=== PATIENT | female | born 1930 | race Caucasian/White ===

== ENCOUNTER 2018-04-07 15:26 | Inpatient (IN) | payer BC, MEDICARE ==
[2018-04-07] MEDS ORDERED: SODIUM CHLORIDE 0.9% 1,000 ML IV STA (15:32)
--- NOTE | 2018-04-07 15:59 | ED ---
General Adult HPI - General Chief complaint: Altered Mental Status Stated complaint: Altered Mental Status Time Seen by Provider: 04/07/18 15:32 Source: EMS, RN notes reviewed, old records reviewed Mode of arrival: EMS Limitations: altered mental status - History of Present Illness Initial comments: This is an 88-year-old female the ER for evaluation of weakness severe weakness. Patient's poor strain secondary to age. Patient family found patient lying on the ground in her apartment. Patient does live by herself. Unknown patient was last seen up, patient is awake alert and knows her she has, states she was just too weak to stand up and was found in the ground she is also unsure of when she went to the ground or how long she was on the ground for - Related Data Home Medications Medication Instructions Recorded Confirmed Albuterol Sulfate [Proair Hfa] 2 puff INHALATION RT-Q4H PRN 04/07/18 04/07/18 Atenolol 25 mg PO HS 04/07/18 04/07/18 Clopidogrel [Plavix] 75 mg PO DAILY 04/07/18 04/07/18 Fluticasone/Salmeterol [Advair 1 inhalation PO BID 04/07/18 04/07/18 250-50 Diskus] Simvastatin [Zocor] 20 mg PO HS 04/07/18 04/07/18 amLODIPine [Norvasc] 7.5 mg PO DAILY 04/07/18 04/07/18 Allergies Allergy/AdvReac Type Severity Reaction Status Date / Time ISAEL Inhibitors Allergy Unknown Verified 04/07/18 16:03 aspirin Allergy Unknown Verified 04/07/18 16:03 diclofenac [From Arthrotec] Allergy Unknown Verified 04/07/18 16:03 misoprostol [From Arthrotec] Allergy Unknown Verified 04/07/18 16:03 prednisone Allergy Unknown Verified 04/07/18 16:03 Review of Systems ROS Statement: Those systems with pertinent positive or pertinent negative responses have been documented in the HPI. ROS Other: All systems not noted in ROS Statement are negative. Past Medical History Past Medical History: Asthma, Heart Failure, CVA/TIA, Hyperlipidemia, Hypertension, Rheumatoid Arthritis (RA) Additional Past Medical History / Comment(s): neoplasm, weakness, thromocytopenia, hearing loss History of Any Multi-Drug Resistant Organisms: None Reported Past Surgical History: Unable to Obtain Past Psychological History: No Psychological Hx Reported Smoking Status: Former smoker Past Alcohol Use History: None Reported Past Drug Use History: None Reported General Exam Limitations: altered mental status General appearance: alert, in no apparent distress Head exam: Present: atraumatic, normocephalic, normal inspection Eye exam: Present: normal appearance, PERRL, EOMI. Absent: scleral icterus, conjunctival injection, periorbital swelling ENT exam: Present: normal exam, mucous membranes moist Neck exam: Present: normal inspection. Absent: tenderness, meningismus, lymphadenopathy Respiratory exam: Present: normal lung sounds bilaterally. Absent: respiratory distress, wheezes, rales, rhonchi, stridor Cardiovascular Exam: Present: regular rate, normal rhythm, normal heart sounds. Absent: systolic murmur, diastolic murmur, rubs, gallop, clicks GI/Abdominal exam: Present: soft, normal bowel sounds. Absent: distended, tenderness, guarding, rebound, rigid Extremities exam: Present: normal inspection, full ROM, normal capillary refill. Absent: tenderness, pedal edema, joint swelling, calf tenderness Back exam: Present: normal inspection Neurological exam: Present: alert, oriented X3, CN II-XII intact Psychiatric exam: Present: normal affect, normal mood Skin exam: Present: warm, dry, intact, normal color. Absent: rash Course Vital Signs 04/07/18 04/07/18 15:40 16:58 Temperature 97.6 F Pulse Rate 60 66 Respiratory 18 18 Rate Blood Pressure 180/81 162/74 O2 Sat by Pulse 98 96 Oximetry - Reevaluation(s) Reevaluation #1: 04/07/18 18:11 Patient with severe weakness and inability to ambulate found down Reevaluation #2: 04/07/18 18:11 Patient has no significant improvement with IV hydration EKG Findings - EKG Comments: EKG Findings:: EKG shows sinus bradycardia rate of 59, CO 134, QRS 124, QTC 495 Medical Decision Making - Medical Decision Making 88 female the ER with severe weakness, found down. Patient be admitted for continued IV hydration, PTOT - Lab Data Result diagrams: 04/07/18 15:45 04/07/18 15:45 Lab Results 04/07/18 04/07/18 04/07/18 Range/Units 15:45 15:45 15:45 WBC 7.1 (3.8-10.6) k/uL RBC 4.46 (3.80-5.40) m/uL Hgb 14.2 (11.4-16.0) gm/dL Hct 43.3 (34.0-46.0) % MCV 97.0 (80.0-100.0) fL MCH 31.8 (25.0-35.0) pg MCHC 32.8 (31.0-37.0) g/dL RDW 12.9 (11.5-15.5) % Plt Count 187 (150-450) k/uL Neutrophils % 81 % Lymphocytes % 12 % Monocytes % 6 % Eosinophils % 1 % Basophils % 0 % Neutrophils # 5.7 (1.3-7.7) k/uL Lymphocytes # 0.8 L (1.0-4.8) k/uL Monocytes # 0.4 (0-1.0) k/uL Eosinophils # 0.1 (0-0.7) k/uL Basophils # 0.0 (0-0.2) k/uL PT (9.0-12.0) sec INR (<1.2) APTT (22.0-30.0) sec Sodium (137-145) mmol/L Potassium (3.5-5.1) mmol/L Chloride (98-107) mmol/L Carbon Dioxide (22-30) mmol/L Anion Gap mmol/L BUN (7-17) mg/dL Creatinine (0.52-1.04) mg/dL Est GFR (CKD-EPI)AfAm (>60 ml/min/1.73 sqM) Est GFR (CKD-EPI)NonAf (>60 ml/min/1.73 sqM) Glucose (74-99) mg/dL POC Glucose (mg/dL) (75-99) mg/dL POC Glu Legal Stenographer ID Plasma Lactic Acid Isreal 1.1 (0.7-2.0) mmol/L Calcium (8.4-10.2) mg/dL Phosphorus (2.5-4.5) mg/dL Magnesium (1.6-2.3) mg/dL Total Bilirubin (0.2-1.3) mg/dL AST (14-36) U/L ALT (9-52) U/L Alkaline Phosphatase (38-126) U/L Ammonia <9 (<30) umol/L Total Creatine Kinase 83 (30-135) U/L CK-MB (CK-2) 2.1 (0.0-2.4) ng/mL CK-MB (CK-2) Rel Index 2.5 Troponin I <0.012 (0.000-0.034) ng/mL Total Protein (6.3-8.2) g/dL Albumin (3.5-5.0) g/dL TSH (0.465-4.680) mIU/L Urine Color Urine Appearance (Clear) Urine pH (5.0-8.0) Ur Specific Garvin (1.001-1.035) Urine Protein (Negative) Urine Glucose (UA) (Negative) Urine Ketones (Negative) Urine Blood (Negative) Urine Nitrite (Negative) Urine Bilirubin (Negative) Urine Urobilinogen (<2.0) mg/dL Ur Leukocyte Esterase (Negative) Urine WBC (0-5) /hpf Amorphous Sediment (None) /hpf 04/07/18 04/07/18 04/07/18 Range/Units 15:45 15:45 16:01 WBC (3.8-10.6) k/uL RBC (3.80-5.40) m/uL Hgb (11.4-16.0) gm/dL Hct (34.0-46.0) % MCV (80.0-100.0) fL MCH (25.0-35.0) pg MCHC (31.0-37.0) g/dL RDW (11.5-15.5) % Plt Count (150-450) k/uL Neutrophils % % Lymphocytes % % Monocytes % % Eosinophils % % Basophils % % Neutrophils # (1.3-7.7) k/uL Lymphocytes # (1.0-4.8) k/uL Monocytes # (0-1.0) k/uL Eosinophils # (0-0.7) k/uL Basophils # (0-0.2) k/uL PT 10.5 (9.0-12.0) sec INR 1.1 (<1.2) APTT 22.9 (22.0-30.0) sec Sodium 138 (137-145) mmol/L Potassium 4.3 (3.5-5.1) mmol/L Chloride 102 (98-107) mmol/L Carbon Dioxide 25 (22-30) mmol/L Anion Gap 11 mmol/L BUN 19 H (7-17) mg/dL Creatinine 0.58 (0.52-1.04) mg/dL Est GFR (CKD-EPI)AfAm >90 (>60 ml/min/1.73 sqM) Est GFR (CKD-EPI)NonAf 82 (>60 ml/min/1.73 sqM) Glucose 101 H (74-99) mg/dL POC Glucose (mg/dL) 98 (75-99) mg/dL POC Glu Legal Stenographer ID Lay Escobar Plasma Lactic Acid Isreal (0.7-2.0) mmol/L Calcium 9.2 (8.4-10.2) mg/dL Phosphorus 3.2 (2.5-4.5) mg/dL Magnesium 1.7 (1.6-2.3) mg/dL Total Bilirubin 0.8 (0.2-1.3) mg/dL AST 27 (14-36) U/L ALT 21 (9-52) U/L Alkaline Phosphatase 66 (38-126) U/L Ammonia (<30) umol/L Total Creatine Kinase (30-135) U/L CK-MB (CK-2) (0.0-2.4) ng/mL CK-MB (CK-2) Rel Index Troponin I (0.000-0.034) ng/mL Total Protein 6.6 (6.3-8.2) g/dL Albumin 3.8 (3.5-5.0) g/dL TSH 0.700 (0.465-4.680) mIU/L Urine Color Urine Appearance (Clear) Urine pH (5.0-8.0) Ur Specific Garvin (1.001-1.035) Urine Protein (Negative) Urine Glucose (UA) (Negative) Urine Ketones (Negative) Urine Blood (Negative) Urine Nitrite (Negative) Urine Bilirubin (Negative) Urine Urobilinogen (<2.0) mg/dL Ur Leukocyte Esterase (Negative) Urine WBC (0-5) /hpf Amorphous Sediment (None) /hpf 04/07/18 Range/Units 17:03 WBC (3.8-10.6) k/uL RBC (3.80-5.40) m/uL Hgb (11.4-16.0) gm/dL Hct (34.0-46.0) % MCV (80.0-100.0) fL MCH (25.0-35.0) pg MCHC (31.0-37.0) g/dL RDW (11.5-15.5) % Plt Count (150-450) k/uL Neutrophils % % Lymphocytes % % Monocytes % % Eosinophils % % Basophils % % Neutrophils # (1.3-7.7) k/uL Lymphocytes # (1.0-4.8) k/uL Monocytes # (0-1.0) k/uL Eosinophils # (0-0.7) k/uL Basophils # (0-0.2) k/uL PT (9.0-12.0) sec INR (<1.2) APTT (22.0-30.0) sec Sodium (137-145) mmol/L Potassium (3.5-5.1) mmol/L Chloride (98-107) mmol/L Carbon Dioxide (22-30) mmol/L Anion Gap mmol/L BUN (7-17) mg/dL Creatinine (0.52-1.04) mg/dL Est GFR (CKD-EPI)AfAm (>60 ml/min/1.73 sqM) Est GFR (CKD-EPI)NonAf (>60 ml/min/1.73 sqM) Glucose (74-99) mg/dL POC Glucose (mg/dL) (75-99) mg/dL POC Glu Legal Stenographer ID Plasma Lactic Acid Isreal (0.7-2.0) mmol/L Calcium (8.4-10.2) mg/dL Phosphorus (2.5-4.5) mg/dL Magnesium (1.6-2.3) mg/dL Total Bilirubin (0.2-1.3) mg/dL AST (14-36) U/L ALT (9-52) U/L Alkaline Phosphatase (38-126) U/L Ammonia (<30) umol/L Total Creatine Kinase (30-135) U/L CK-MB (CK-2) (0.0-2.4) ng/mL CK-MB (CK-2) Rel Index Troponin I (0.000-0.034) ng/mL Total Protein (6.3-8.2) g/dL Albumin (3.5-5.0) g/dL TSH (0.465-4.680) mIU/L Urine Color Light Yellow Urine Appearance Cloudy H (Clear) Urine pH 7.5 (5.0-8.0) Ur Specific Garvin 1.008 (1.001-1.035) Urine Protein Negative (Negative) Urine Glucose (UA) Negative (Negative) Urine Ketones Trace H (Negative) Urine Blood Negative (Negative) Urine Nitrite Negative (Negative) Urine Bilirubin Negative (Negative) Urine Urobilinogen <2.0 (<2.0) mg/dL Ur Leukocyte Esterase Negative (Negative) Urine WBC <1 (0-5) /hpf Amorphous Sediment Rare H (None) /hpf - Radiology Data Radiology results: report reviewed (CT brain chest and pelvis x-ray are negative ), image reviewed Disposition Clinical Impression: Altered mental status, Dehydration, Weakness Disposition: ADMITTED IP TO THIS [facility] Condition: Fair Referrals: Nani Fischer MD [Primary Care Provider] - 1-2 days
[2018-04-07 16:02] LABS: Glucose,Whole Blood 98 mg/dL (75-99)
[2018-04-07 16:09] LABS: Basophils % (A) 0 %; Eosinophils # (A) 0.1 k/uL (0-0.7); Eosinophils % (A) 1 %; HCT 43.3 % (34.0-46.0); HGB 14.2 gm/dL (11.4-16.0); Lymphocytes # (A) 0.8 k/uL (1.0-4.8); Lymphocytes % (A) 12 %; MCH 31.8 pg (25.0-35.0); MCHC 32.8 g/dL (31.0-37.0); Mean Platelet Volume 6.8; Monocytes # (A) 0.4 k/uL (0-1.0); Monocytes % (A) 6 %; Neutrophils # (A) 5.7 k/uL (1.3-7.7); Neutrophils % (A) 81 %; Platelet Count 187 k/uL (150-450); RBC 4.46 m/uL (3.80-5.40); RDW 12.9 % (11.5-15.5); WBC 7.1 k/uL (3.8-10.6)
[2018-04-07 16:17] LABS: INR 1.1 (<1.2); Partial Thromboplastin Time 22.9 sec (22.0-30.0); Prothrombin Time 10.5 sec (9.0-12.0)
[2018-04-07 16:23] LABS: ALT 21 U/L (9-52); AST 27 U/L (14-36); Albumin 3.8 g/dL (3.5-5.0); Alkaline Phosphatase 66 U/L (38-126); Anion Gap 11 mmol/L; Blood Urea Nitrogen 19 mg/dL (7-17); Calcium 9.2 mg/dL (8.4-10.2); Carbon Dioxide 25 mmol/L (22-30); Chloride 102 mmol/L (98-107); Glucose 101 mg/dL (74-99); Magnesium 1.7 mg/dL (1.6-2.3); Phosphorus 3.2 mg/dL (2.5-4.5); Potassium 4.3 mmol/L (3.5-5.1); Sodium 138 mmol/L (137-145); Total Bilirubin 0.8 mg/dL (0.2-1.3); Total Protein 6.6 g/dL (6.3-8.2)
[2018-04-07 16:25] LABS: Creatine Kinase 83 U/L (30-135)
[2018-04-07 16:38] LABS: Creatine Kinase MB 2.1 ng/mL (0.0-2.4); Troponin I <0.012 ng/mL (0.000-0.034)
[2018-04-07 16:39] LABS: Ammonia <9 umol/L (<30); Lactic Acid, Venous 1.1 mmol/L (0.7-2.0)
--- NOTE | 2018-04-07 16:42 | CT ---
EXAMINATION TYPE: CT brain wo con DATE OF EXAM: 04/07/2018 COMPARISON: NONE HISTORY: 88-year-old female complains of headache and weakness. TECHNIQUE: Examination was done in axial plane without intravenous contrast. Coronal and sagittal r econstructions performed. CT DLP: 1082 mGycm Automated exposure control for dose reduction was used. FINDINGS: There is no evidence of acute intracranial hemorrhage, acute ischemic changes, mass, mass-effect, or extra-axial fluid collection. There is no effacement of cerebral sulci or basal subarachnoid cister ns. There is no hydrocephalus. There is no midline shift. Schneider-white matter distinction is preserv ed. There are moderate patchy white matter hypodensities in posterior hemispheres and old lacunar infarct s in both basal ganglia. Visualized paranasal sinuses and mastoid air cells are clear. IMPRESSION: No acute intracranial abnormality seen. Moderate patchy changes of chronic small vessel ischemic dise ase and old bilateral basal ganglionic lacunar infarcts.
--- NOTE | 2018-04-07 17:09 | XR ---
EXAMINATION TYPE: XR pelvis AP view DATE OF EXAM: 04/07/2018 COMPARISON: NONE HISTORY: 88-year-old female with fall and pain TECHNIQUE: AP view FINDINGS: Profound osteopenia limits assessment. No displaced fractures are seen. Degenerative changes lower rafael mbar spine. IMPRESSION: Profound osteopenia without displaced fractures. If the patient is nonweightbearing, MRI can provide more sensitive evaluation.
--- NOTE | 2018-04-07 17:09 | XR ---
EXAMINATION TYPE: XR chest 2V DATE OF EXAM: 04/07/2018 COMPARISON: None HISTORY: 88-year-old female with weakness TECHNIQUE: Frontal and lateral views FINDINGS: Heart mildly enlarged. Atherosclerotic calcification throughout the aorta. Hyperinflation with increa sed retrosternal clear space. Diffuse interstitial prominence. Eventration right hemidiaphragm. No co nsolidation or pleural effusion. IMPRESSION: Marked cardiomegaly and COPD. Chronic appearing changes without definite acute process.
[2018-04-07 17:40] LABS: Amorphous Sediment,Urine Rare /hpf; Appearance,Urine Cloudy (Clear); Bilirubin,Urine Negative (Negative); Blood,Urine Negative (Negative); Color,Urine Light Yellow; Glucose,Urine (UA) Negative (Negative); Ketones,Urine Trace (Negative); Leukocyte Esterase,Urine Negative (Negative); Nitrite,Urine Negative (Negative); PH, Urine 7.5 (5.0-8.0); Protein,Urine Negative (Negative); Specific Gravity,Urine 1.008 (1.001-1.035); Urobilinogen,Urine <2.0 mg/dL (<2.0); WBC,Urine <1 /hpf (0-5)
[2018-04-07] MEDS ORDERED: SODIUM CHLORIDE 0.9% 1,000 ML IV ONE (18:14)
[2018-04-07] MEDS ORDERED: hydrALAZINE HCL 20 MG/ML 1 ML VIAL IVP STA (19:50)
[2018-04-07 21:33] VITALS: BMI 20.9
[2018-04-08] MEDS ORDERED: ALBUTEROL NEBULIZED 2.5 MG/3 ML INHALATION PRN (08:32)
[2018-04-08] MEDS ORDERED: ATENOLOL 25 MG TAB PO STA (08:33)
[2018-04-08] MEDS: ENOXAPARIN 40 MG/0.4 ML SYRINGE SQ SCH (10:30)
[2018-04-08] MEDS: CLOPIDOGREL 75 MG TAB PO SCH (10:31)
[2018-04-08] MEDS: amLODIPine 5 MG TAB PO SCH (10:31)
--- NOTE | 2018-04-08 13:33 | P.HPIM ---
History of Present Illness H&P Date: 04/08/18 Chief Complaint: weakness Patient is a 88-year-old female with a past medical history hypertension, dyslipidemia, prior stroke with residual left-sided weakness, and congestive heart failure who presented to the ER with weakness. In the emergency department she underwent an extensive evaluation. Her initial vital signs showed an elevated blood pressure of 180/81. Initial laboratory analysis is essentially unremarkable. Urinalysis was unremarkable. She received 1 L of IV fluids but was still too weak to be discharged from the ER. She was placed in observation for further monitoring and care. Patient seen and examined at bedside. She states that she saw Dr. Fischer recently and her Norvasc was increased from 5 mg daily to 7.5 mg daily. Her atenolol was changed to at bedtime and was increased from 25 to50 mg daily. She states she started her new dosing and then started having weakness. On the morning of 04/07 she awoke and felt extremely weak. She attempted to ambulate to the kitchen but developed weakness and fell. She denies striking her head. She was not having any joint pain at that point in time. She did not faint or pass out. She had no chest pain or shortness of breath. Once on the floor she could not get herself up. She laid on the floor until her daughter came over which was approximately 7-1/2 hours later. She denies any recent cough, cold, fever, flu, nausea, vomiting, diarrhea, or dysuria. She lives alone and uses a walker when out of the house. It sounds as though she lives in a jail apartment. Review of Systems Pertinent positives and negatives as discussed in HPI, a complete review of systems was performed and all other systems are negative. Past Medical History Past Medical History: Asthma, Heart Failure, CVA/TIA, Hyperlipidemia, Hypertension, Rheumatoid Arthritis (RA) Additional Past Medical History / Comment(s): weakness, hearing loss, chronic edema left lower extremity History of Any Multi-Drug Resistant Organisms: None Reported Additional Past Surgical History / Comment(s): Bilateral cataract Past Anesthesia/Blood Transfusion Reactions: No Reported Reaction Past Psychological History: No Psychological Hx Reported Smoking Status: Former smoker Past Alcohol Use History: None Reported Past Drug Use History: None Reported Additional History: Lives alone in jail facility, uses a walker at baseline. - Past Family History Father Family Medical History: Myocardial Infarction ([place]) Mother Additional Family Medical History / Comment(s): Cancer, unknown type Medications and Allergies Home Medications Medication Instructions Recorded Confirmed Type Albuterol Sulfate [Proair Hfa] 2 puff INHALATION RT-Q4H PRN 04/07/18 04/07/18 History Atenolol 25 mg PO HS 04/07/18 04/07/18 History Clopidogrel [Plavix] 75 mg PO DAILY 04/07/18 04/07/18 History Fluticasone/Salmeterol [Advair 1 inhalation PO BID 04/07/18 04/07/18 History 250-50 Diskus] Simvastatin [Zocor] 20 mg PO HS 04/07/18 04/07/18 History amLODIPine [Norvasc] 7.5 mg PO DAILY 04/07/18 04/07/18 History Allergies Allergy/AdvReac Type Severity Reaction Status Date / Time ISAEL Inhibitors Allergy Unknown Verified 04/07/18 16:03 aspirin Allergy Unknown Verified 04/07/18 16:03 diclofenac [From Arthrotec] Allergy Unknown Verified 04/07/18 16:03 misoprostol [From Arthrotec] Allergy Unknown Verified 04/07/18 16:03 prednisone Allergy Unknown Verified 04/07/18 16:03 Physical Exam Osteopathic Statement: *. No significant issues noted on an osteopathic structural exam other than those noted in the History and Physical/Consult. Vitals: Vital Signs Temp Pulse Pulse Resp BP BP Pulse Ox 04/08/18 07:15 97.8 F 62 18 180/74 97 04/08/18 04:00 97.9 F 67 18 165/71 96 04/07/18 22:30 72 18 04/07/18 21:06 98.0 F 72 18 146/65 95 04/07/18 20:00 88 183/77 04/07/18 19:48 63 18 207/88 98 04/07/18 18:54 68 18 180/79 96 04/07/18 16:58 66 18 162/74 96 04/07/18 15:40 97.6 F 60 18 180/81 98 Intake and Output 04/07/18 04/08/18 04/08/18 22:59 06:59 14:59 Intake Total 240 Balance 240 Intake: Oral 240 Other: Voiding Method Toilet # Voids 1 1 Weight 48.534 kg 48.534 kg General: non toxic, no distress, appears at stated age, frail-appearing Derm: no unusual rashes/lesions multiple areas of ecchymosis at different stages of healing, warm, dry Head: atraumatic, normocephalic, symmetric Eyes: EOMI, no lid lag, anicteric sclera, pupils equal round reactive to light ENT: Nose and ears atraumatic, no thrush, no pharyngeal erythema Neck: No thyromegaly, no cervical lymphadenopathy, trachea midline, supple Mouth: no lip lesion, mucus membranes moist Cardiovascular: S1-S2 with systolic ejection murmur, positive posterior tibial pulse bilateral, trace edema left lower extremity, capillary refill less than 2 seconds Lungs: CTA bilateral, no rhonchi, no rales , no accessory muscle use Abdominal: soft, nontender to palpation, no guarding, no appreciable organomegaly, normal bowel sounds Ext: no gross muscle atrophy, muscle strength 4 out of 5 in all 4 extremities grossly, no contractures, ulnar deviation of fingers on bilateral hands Neuro: Right sided facial droop which she states is chronic, light touch intact all 4 extremities, finger to nose within normal limits, Psych: Alert, oriented, appropriate affect Results CBC & Chem 7: 04/07/18 15:45 04/07/18 15:45 Labs: Abnormal Lab Results - Last 24 Hours (Table) 04/07/18 04/07/18 04/07/18 Range/Units 15:45 15:45 17:03 Lymphocytes # 0.8 L (1.0-4.8) k/uL BUN 19 H (7-17) mg/dL Glucose 101 H (74-99) mg/dL Urine Appearance Cloudy H (Clear) Urine Ketones Trace H (Negative) Amorphous Sediment Rare H (None) /hpf Microbiology - Last 24 Hours (Table) 04/07/18 17:03 Urine Culture - Preliminary Urine,Catheterized Comments: EKG is reviewed by myself reveals sinus bradycardia with a right sided bundle branch block with a QRS of 124 and a slightly prolonged QT of 495. Thrombosis Risk Factor Assmnt - DVT/VTE Prophylaxis DVT/VTE Prophylaxis: Low risk, early ambulation encouraged - Choose All That Apply Each Risk Factor Represents 3 Points: Age 75 years or older Thrombosis Risk Factor Assessment Total Risk Factor Score: 3 Thrombosis Risk Factor Assessment Level: Moderate Risk Assessment and Plan Assessment: HTN urgency - s/p 1 dose of hydralazine in the ED - follow BP - resume home norvasc and atenolol 25 mg in AM today - echo Fall with Weakness - PT evaultion - Plan on home with home health Chronic; CHF compensate, unknown EF HLD CVA asthma hard of hearing The patient is placed in observation with an anticipated less than 2 per night stay for evaluation of weakness and hypertensive urgency. Surrogate decision-maker: Daughter-Silke CODE STATUS: Full DVT prophylaxis: SCDs Discussed with: Patient, Nursing Anticipated discharge date: 04/[address]: home with home health A total of 55 minutes was spent on the care of this complex patient more than 50 % of the time was spent in counseling and care coordination.
--- NOTE | 2018-04-08 13:56 | ECHOF ---
Referral Reason:chf, presyncope MEASUREMENTS -------- HEIGHT: 154.9 cm WEIGHT: 48.5 kg BP: RVIDd: 2.4 cm (< 3.3) IVSd: 1.1 cm (0.6 - 1.1) LVIDd: 2.4 cm (3.9 - 5.3) LVPWd: 1.3 cm (0.6 - 1.1) IVSs: 1.6 cm LVIDs: 1.0 cm LVPWs: 1.8 cm Ao Diam: 3.1 cm (2.0 - 3.7) AV Cusp: 1.4 cm (1.5 - 2.6) LA Diam: 3.7 cm (2.7 - 3.8) MV EXCURSION: 10.998 mm (> 18.000) MV EF SLOPE: 38 mm/s (70 - 150) EPSS: 0.2 cm MV E Aureliano: 0.78 m/s MV DecT: 349 ms MV A Aureliano: 1.15 m/s MV E/A Ratio: 0.68 RAP: 5.00 mmHg RVSP: 36.87 mmHg FINDINGS -------- Sinus rhythm. This was a technically good study. The left ventricular size is normal. There is mild concentric left ventricular hypertrophy. Overa ll left ventricular systolic function is normal with, an EF between 55 - 60 %. The right ventricle is normal in size and function. The left atrium is normal in size. The right atrium is normal in size. Aortic valve is trileaflet and is mildly thickened. There is mild aortic regurgitation. The mitral valve leaflets are mildly thickened. Mild mitral regurgitation is present. Mild tricuspid regurgitation present. The right ventricular systolic pressure, as measured by Doppl er, is 36.87mmHg. Trace/mild (physiologic) pulmonic regurgitation. The aortic root size is normal. There is a trivial pericardial effusion present. CONCLUSIONS -------- 1. Sinus rhythm. 2. This was a technically good study. 3. The left ventricular size is normal. 4. There is mild concentric left ventricular hypertrophy. 5. Overall left ventricular systolic function is normal with, an EF between 55 - 60 %. 6. The right ventricle is normal in size and function. 7. The left atrium is normal in size. 8. The right atrium is normal in size. 9. Aortic valve is trileaflet and is mildly thickened. 10. There is mild aortic regurgitation. 11. The mitral valve leaflets are mildly thickened. 12. Mild mitral regurgitation is present. 13. Mild tricuspid regurgitation present. 14. The right ventricular systolic pressure, as measured by Doppler, is 36.87mmHg. 15. Trace/mild (physiologic) pulmonic regurgitation. 16. The aortic root size is normal. 17. There is a trivial pericardial effusion present. TELEVISION PICTURE TUBE REBUILDER: Sandra Pineda RDCS
--- NOTE | 2018-04-08 16:57 | US ---
EXAMINATION TYPE: US carotid duplex BILAT DATE OF EXAM: 04/08/2018 COMPARISON: NONE CLINICAL HISTORY: stroke. EXAM MEASUREMENTS: RIGHT: Peak Systolic Velocity (PSV) cm/sec ----- Right CCA: 60. ----- Right ICA: 64.7 ----- Right ECA: 81.2 ICA/CCA ratio: 1.1 RIGHT: End Diastole cm/sec ----- Right CCA: 6.0 ----- Right ICA: 6.5 ----- Right ECA: 0.0 LEFT: Peak Systolic Velocity (PSV) cm/sec ----- Left CCA: 87.0 ----- Left ICA: 69.1 ----- Left ECA: 122.6 ICA/CCA ratio: 0.8 LEFT: End Diastole cm/sec ----- Left CCA: 12.5 ----- Left ICA: 9.8 ----- Left ECA: 0.0 VERTEBRALS (direction of flow): Right Vertebral: Antegrade Left Vertebral: Antegrade Rhythm: Normal Grayscale, color Doppler, spectral Doppler imaging performed of the carotid arteries. Waveform analys is does not show significant stenosis of the proximal internal carotid arteries bilaterally by Dopple r criteria. Moderate atherosclerotic changes noted throughout; worse at bilateral bulbs. No significant velocity elevations. Limited due to tortuosity of vessels and pt tolerance. IMPRESSION: Exam is limited. No hemodynamic significant stenosis of the proximal internal carotid ar teries bilaterally by Doppler criteria, an indirect measurement of carotid stenosis is evident.
[2018-04-08] MEDS: SYMBICORT 80-4.5 MCG INHALER INHALATION SCH (19:54)
[2018-04-08] MEDS: ATENOLOL 25 MG TAB PO SCH (20:18)
[2018-04-08] MEDS ORDERED: ATORVASTATIN 10 MG TAB PO SCH (21:00)
[2018-04-08 22:54] LABS: Vitamin D 25 Hydroxy 70.8 ng/mL (30.0-100.0)
[2018-04-09] MEDS: ACETAMINOPHEN TAB 325 MG TAB PO PRN (06:26)
[2018-04-09] MEDS: amLODIPine 5 MG TAB PO SCH (08:26)
[2018-04-09] MEDS: CLOPIDOGREL 75 MG TAB PO SCH (08:26)
[2018-04-09] MEDS: ENOXAPARIN 40 MG/0.4 ML SYRINGE SQ SCH (08:26)
[2018-04-09] MEDS: SYMBICORT 80-4.5 MCG INHALER INHALATION SCH ×2 (08:46→19:59)
--- NOTE | 2018-04-09 12:08 | XR ---
EXAMINATION TYPE: XR chest 2V DATE OF EXAM: 04/09/2018 COMPARISON: Prior chest x-ray 04/07/2018 HISTORY: Cough TECHNIQUE: Frontal and lateral views of the chest are obtained. FINDINGS: There is no focal air space opacity, pleural effusion, or pneumothorax seen. The cardiac silhouette size is stable, enlarged. Prominent lung volumes suggest underlying COPD. There is eventr ation of right hemidiaphragm. Vascular calcifications are noted incidentally. Arthropathy present wit hin the shoulders. Some minimal linear scarring present at the lung bases. Thoracic spondylosis is pr esent. The aorta is dense. The osseous structures are intact. IMPRESSION: No acute cardiopulmonary process.
--- NOTE | 2018-04-09 15:11 | P.PN ---
Subjective Progress Note Date: 04/09/18 Principal diagnosis: weakness, aphasia Patient is a 88-year-old female with a past medical history hypertension, dyslipidemia, prior stroke with residual left-sided weakness, and congestive heart failure who presented to the ER with weakness. In the emergency department she underwent an extensive evaluation. Her initial vital signs showed an elevated blood pressure of 180/81. Initial laboratory analysis is essentially unremarkable. Urinalysis was unremarkable. She received 1 L of IV fluids but was still too weak to be discharged from the ER. She was placed in observation for further monitoring and care. She was found to have orthostatic vital sign despite hypetension and this was anticipated to be secondly to decreased compliance of her blood vessels due to advanced age. Her daughter then came and stated that she has been having episodes with choking at home for the last 1 week and coughing. She also has noted garbled speech. There is concern of possible new stroke. She was already on Plavix ALLERGIC to aspirin. She was moved to the selective care unit and neurology was consulted. She was stated on telemetry. Echo was with in normal. Carotid doppler unremarkable. She was having cough after eating. Had a delayed cough with water at bedside and passed with apple sauce. Speech was consulted. PT/OT evaulation was ordered at admission. She was took weak to be discharged home. Patient seen and examined at bedside. Still have weakness when trying to ambulate. Realizes that she is to be total frustrated being here. Denies chest pain or nausea. No additional coughing or choking with thickened liquids and feels that they are really helping. Discussed with daughter possibly need for rehab and awaiting neurology consultation. Objective - Vital Signs Vital signs: Vital Signs Temp 96.9 F L 04/09/18 12:00 Pulse 63 04/09/18 12:00 Resp 18 04/09/18 12:00 BP 143/82 04/09/18 12:00 Pulse Ox 96 04/09/18 12:00 Intake & Output 04/08/18 04/09/18 04/09/18 18:59 06:59 18:59 Intake Total 840 0 360 Output Total 225 Balance 840 -225 360 Weight 48 kg Intake: Oral 540 0 360 Other 300 Output: Urine 225 Other: Voiding Method Toilet Toilet Toilet # Voids 1 1 - Exam General: non toxic, no distress, appears at stated age Derm: warm, dry, lesion on left nasal labial fold Head: atraumatic, normocephalic, symmetric Eyes: EOMI, no lid lag, anicteric sclera Mouth: no lip lesion, mucus membranes moist Cardiovascular: S1S2 reg, no murmur, positive posterior tibial pulse bilateral, Lungs: rhonchi b/l bases , no accessory muscle use Abdominal: soft, nontender to palpation, no guarding, no appreciable organomegaly Ext: no gross muscle atrophy, no edema, no contractures Neuro: right sided facial droop, moving all 4 extremities independently. Psych: Alert, oriented, appropriate affect - Labs CBC & Chem 7: 04/07/18 15:45 04/07/18 15:45 Labs: Microbiology - Last 24 Hours (Table) 04/07/18 17:03 Urine Culture - Final Urine,Catheterized Assessment and Plan Assessment: Acute ischemic CVA - d/w neurology will proceed with EEG and MRI - PT/OT/speech - tele - echo and carotid dopplers wnl - allergic to ASA already on plavix - increase lipitor to 40mg nightly. Dysphagia - continue with honey thickened liquid - await formal speech eval in AM - ordered x ray and reviewed no signs of aspiration event HTN urgency, resolved - s/p 1 dose of hydralazine in the ED - follow BP - home norvasc and atenolol 25 mg - recheck orthostatics Fall with Weakness - PT evaultion - fall precautions Chronic; CHF compensated, EF 55-60% HLD CVA asthma hard of hearing Anticipate that patient will likely need rehab, discussed with case management. Patient now with diagnosis of ischemic CVA and symptoms did not resolve in 24 hours will transition patient to inpatient status. CODE STATUS: Full DVT prophylaxis: SCDs Discussed with: Patient, Nursing Anticipated discharge date: 04/[address] A total of 55 minutes was spent on the care of this complex patient more than 50 % of the time was spent in counseling and care coordination.
--- NOTE | 2018-04-09 15:24 | P.CNNES ---
History of Present Illness Consult date: 04/09/18 Requesting physician: Dayana Albert Reason for Consult: CVA History of Present Illness: Patient is a pleasant 88-year-old female who is being evaluated by the neurology service on 04/09/2018 per the request of Dr. Reed for CVA. Patient is a poor historian and information is gleaned from the chart and staff. Patient's family found patient lying on the floor of her apartment. Patient lives alone. Patient states she was too weak to stand up and she was unsure how long she had been on the floor. Patient does have history of prior stroke with left sided weakness at that time. She also has a history of hypertension, asthma, CHF, and rheumatoid arthritis. Patient denies loss of consciousness. Patient denies dizziness and falling. She cannot remember how or why she fell. Patient is on Plavix 75 mg daily in the home setting. She also takes Zocor 20 mg daily at bedtime in the home setting. CT scan of the brain was done on admission which showed no acute intracranial abnormality. Computed tomography scan of the brain showed chronic small vessel ischemic disease and old bilateral basal ganglia and lacunar infarcts. Carotid Doppler showed no hemodynamically significant stenosis. EKG showed sinus rhythm. Echo showed an ejection fraction between 55 and 60%. Vital signs at admission were temperature 97.6, pulse 60, respiratory rate 18, blood pressure 180/81, and oxygen saturation was 98% on room air. Labs were essentially unremarkable except for an elevated BUN of 19. At the time of my evaluation, patient's resting comfortably in bed and appears to be in no acute distress. Review of Systems REVIEW OF SYSTEMS: Otherwise unremarkable and noncontributory. Past Medical History Past Medical History: Asthma, Heart Failure, CVA/TIA, Hyperlipidemia, Hypertension, Rheumatoid Arthritis (RA) Additional Past Medical History / Comment(s): weakness, hearing loss, chronic edema left lower extremity History of Any Multi-Drug Resistant Organisms: None Reported Past Surgical History: No Surgical Hx Reported Additional Past Surgical History / Comment(s): Bilateral cataract Past Anesthesia/Blood Transfusion Reactions: No Reported Reaction Past Psychological History: No Psychological Hx Reported Smoking Status: Former smoker Past Alcohol Use History: None Reported Past Drug Use History: None Reported - Past Family History Father Family Medical History: Myocardial Infarction ([place]) Mother Additional Family Medical History / Comment(s): Cancer, unknown type Medications and Allergies Home Medications Medication Instructions Recorded Confirmed Type Albuterol Sulfate [Proair Hfa] 2 puff INHALATION RT-Q4H PRN 04/07/18 04/07/18 History Atenolol 25 mg PO HS 04/07/18 04/07/18 History Clopidogrel [Plavix] 75 mg PO DAILY 04/07/18 04/07/18 History Fluticasone/Salmeterol [Advair 1 inhalation PO BID 04/07/18 04/07/18 History 250-50 Diskus] Simvastatin [Zocor] 20 mg PO HS 04/07/18 04/07/18 History amLODIPine [Norvasc] 7.5 mg PO DAILY 04/07/18 04/07/18 History Allergies Allergy/AdvReac Type Severity Reaction Status Date / Time ISAEL Inhibitors Allergy Unknown Verified 04/07/18 16:03 aspirin Allergy Unknown Verified 04/07/18 16:03 diclofenac [From Arthrotec] Allergy Unknown Verified 04/07/18 16:03 misoprostol [From Arthrotec] Allergy Unknown Verified 04/07/18 16:03 prednisone Allergy Unknown Verified 04/07/18 16:03 Physical Examination - Vital Signs Vital Signs: Vital Signs Temp Pulse Pulse Pulse Pulse Resp BP 04/09/18 12:00 96.9 F L 63 16 04/09/18 08:00 97.6 F 54 L 16 04/09/18 04:00 97.3 F L 62 18 04/09/18 00:00 97.5 F L 55 L 18 04/08/18 20:00 97.9 F 71 18 04/08/18 15:45 97.2 F L 68 18 04/08/18 15:33 97.6 F 78 95 78 18 175/81 BP BP BP Pulse Ox 04/09/18 12:00 143/82 96 04/09/18 08:00 135/80 98 04/09/18 04:00 153/72 94 L 04/09/18 00:00 153/80 97 04/08/18 20:00 151/73 96 04/08/18 15:45 144/83 93 L 04/08/18 15:33 137/67 168/76 95 Intake and Output 04/08/18 04/09/18 04/09/18 22:59 06:59 14:59 Intake Total 0 360 Output Total 225 Balance -225 360 Intake: Oral 0 360 Output: Urine 225 Other: Voiding Method Toilet Toilet Toilet # Voids 1 Weight 48 kg PHYSICAL EXAM: GENERAL APPEARANCE: Patient is a well-developed, female who appears to be in no acute distress. HEENT: Normocephalic, atraumatic, mild right facial asymmetry is seen. Neck is supple with no masses felt. CARDIOVASCULAR: Regular rate and rhythm. ABDOMEN: Nontender, nondistended. EXTREMITIES: Show no edema or clubbing. NEUROLOGICAL EXAM: Patient is awake, alert, and oriented 3. Speech is dysarthric. Language is normal. Right facial droop noted on cranial nerve testing. Strength is 4/5 in the right upper and lower extremity and 4+/5 in the left upper and lower extremity. Sensory exam is normal to light touch in all 4 extremities. No tremors or seizure-like activity noted. Results - Laboratory Findings CBC and BMP: 04/07/18 15:45 04/07/18 15:45 Abnormal Lab Findings: Abnormal Labs 04/07/18 04/07/18 04/07/18 15:45 15:45 17:03 Lymphocytes # 0.8 L BUN 19 H Glucose 101 H Urine Appearance Cloudy H Urine Ketones Trace H Amorphous Sediment Rare H Assessment and Plan Plan: Impression: 1. CVA versus hypertensive crisis 2. Dysarthria 3. Right-sided weakness 4. Fall at home 5. History of CHF Recommendation: Patient does have history of CVA and reportedly symptoms were left-sided weakness with last stroke. Patient family reports dysarthria is new for her. Dysarthria is ongoing and has not yet resolved. Patient does have right-sided weakness with right facial droop as well. Computed tomography scan of the brain showed no acute process. Carotid Dopplers showed no hemodynamically significant stenosis. Patient has questionable difficulty with swallow. Thickened liquids have been ordered for her until speech therapy can do a full evaluation. I recommend continuing Plavix 75 mg by mouth daily and statin therapy. I will order an MRI of the brain, EEG, fasting lipid panel and serum homocysteine level. I recommend physical therapy occupational therapy and speech therapy to evaluate and treat. Continue neurological checks. Continue medical management. Patient may need short inpatient rehab stay or home healthcare therapy. I will continue to follow with you. Further recommendations to follow. Thank you for allowing me to participate in the care of your patient. Feel free to call with any questions or concerns. I performed an examination of the patient and discussed the management with the SLITTER AND REWINDER. I have reviewed the SLITTER AND REWINDER notes and agree with the findings and plan of care.
[2018-04-09] MEDS: ATORVASTATIN 40 MG TAB PO SCH (20:38)
[2018-04-09] MEDS: ATENOLOL 25 MG TAB PO SCH (20:38)
[2018-04-10 06:44] LABS: Cholesterol 138 mg/dL (<200); HDL Cholesterol 48 mg/dL (40-60); LDL Cholesterol,Calculated 77 mg/dL (0-99); Triglycerides 63 mg/dL (<150)
[2018-04-10] MEDS: SYMBICORT 80-4.5 MCG INHALER INHALATION SCH ×2 (07:48→19:20)
--- NOTE | 2018-04-10 09:47 | MR ---
EXAMINATION TYPE: MR brain wo con DATE OF EXAM: 04/10/2018 COMPARISON: NONE HISTORY: CVA T1-weighted sagittal, T2, FLAIR, and diffusion axial, and T2 coronal coronal views of the brain are s ubmitted. There is abnormal signal within the alexandra measuring approximately 1.1 cm greater to the left compatibl e with acute to subacute ischemia. Changes of chronic sinusitis are noted. Chronic mastoiditis also incidentally noted and there is a na han septal deviation. There is a generalized degenerative change with both diffuse and numerous areas of focal abnormal sig nal the white matter most typical remote microvascular ischemia. Craniocervical junction maintained. Sella turcica has a normal appearance. No cerebellopontine angle mass. Abnormal signal in the basal ganglia suggestive of remote lacunar inf arct. IMPRESSION: 1. Approximately 1.1 cm area of acute to subacute ischemia involving the alexandra. Correlate clinically. Report called to the patient's nurse. A [place] level critical message alert has been initiated for Dayana Albert DO via the [employer] Critical Results System on 04/10/2018 9:40 AM. This message alert has been sent to Dayana Albert DO via the preferences provided by the clinician for the receipt of Radiology Critical Findings. [facility] ID [id number].
[2018-04-10] MEDS: ENOXAPARIN 40 MG/0.4 ML SYRINGE SQ SCH (10:20)
[2018-04-10] MEDS: amLODIPine 5 MG TAB PO SCH (10:20)
[2018-04-10] MEDS: CLOPIDOGREL 75 MG TAB PO SCH (10:20)
--- NOTE | 2018-04-10 11:48 | FL ---
Modified barium swallow HISTORY: Pontine infarct, dysphasia 3 minutes 18 seconds fluoroscopy time, no intraoperative images obtained Patient was given barium mixed with liquids and solids and evaluated in real-time fluoroscopy in the lateral projection On honey thick consistency fluids there was deep laryngeal penetration identified. Thin liquid aspira tion was identified. Please see speech pathology report for full evaluation.
[2018-04-10] MEDS: ACETAMINOPHEN TAB 325 MG TAB PO PRN (15:19)
--- NOTE | 2018-04-10 16:54 | P.PN ---
Subjective Progress Note Date: 04/10/18 Principal diagnosis: Patient is a 88-year-old female with a past medical history hypertension, dyslipidemia, prior stroke with residual left-sided weakness, and congestive heart failure who presented to the ER with weakness. In the emergency department she underwent an extensive evaluation. Her initial vital signs showed an elevated blood pressure of 180/81. Initial laboratory analysis is essentially unremarkable. Urinalysis was unremarkable. She received 1 L of IV fluids but was still too weak to be discharged from the ER. She was placed in observation for further monitoring and care. She was found to have orthostatic vital sign despite hypetension and this was anticipated to be secondly to decreased compliance of her blood vessels due to advanced age. Her daughter then came and stated that she has been having episodes with choking at home for the last 1 week and coughing. She also has noted garbled speech. There is concern of possible new stroke. She was already on Plavix ALLERGIC to aspirin. She was moved to the selective care unit and neurology was consulted. She was stated on telemetry. Echo was with in normal. Carotid doppler unremarkable. She was having cough after eating. Had a delayed cough with water at bedside and passed with apple sauce. Speech was consulted. PT/OT evaulation was ordered at admission. She was took weak to be discharged home. went to visit patient initially she was down at EEG. 3 visiting her the patient is doing well, daughter did express some increasing frustration on the patient's part with dysarthria and speech problem. Otherwise no complaints Objective - Vital Signs Vital signs: Vital Signs Temp 98.5 F 04/10/18 16:00 Pulse 64 04/10/18 16:00 Resp 14 04/10/18 16:00 BP 146/68 04/10/18 16:00 Pulse Ox 95 04/10/18 16:00 Intake & Output 04/09/18 04/10/18 04/10/18 18:59 06:59 18:59 Intake Total 840 Output Total 1 Balance 840 -1 Weight 47.8 kg Intake: Oral 840 Output: Urine/Stool Mix 1 Other: Voiding Method Toilet Toilet Toilet # Voids 1 1 0 - Exam Constitutional: No acute distress, conversant, pleasant Eyes: Anicteric sclerae, moist conjunctiva, no lid-lag, PERRLA ENMT: NC/AT,Oropharynx clear, no erythema, exudates Neck:Supple, FROM, no masses, or JVD, No carotid bruits; No thyromegaly Lungs: Clear to auscultation, Clear to percussion, Normal respiratory effort, no accessory muscle use Cardiovascular: Heart regular in rate and rhythm, No murmurs, gallops, or rubs no peripheral edema Abdominal: Soft Nontender, nom distended, no guarding, no rebound or rigidity, Normoactive bowel sounds No hepatomegaly, No splenomegaly, No palpable mass No abdominal wall hernia noted Skin: Normal temperature, tone, texture, turgor, No induration No subcutaneous nodules, No rash, lesions, No ulcers Extremities:No digital cyanosis No clubbing, Pedal pulses intact and symmetrical Radial pulses intact and symmetrical Normal gait and station, No calf tenderness Psychiatric: Alert and oriented to person, place and time, Appropriate affect Intact judgement Neuro: Dysarthric speech, right facial droop, 4/5 in the bilateral upper and lower extremity. - Labs CBC & Chem 7: 04/07/18 15:45 04/07/18 15:45 Assessment and Plan (1) CVA (cerebral vascular accident) Narrative/Plan: * Appreciate neurology recommendations EEG results pending. MRI confirming pontine CVA * Patient with history of being on antiplatelet therapy with Plavix, with ALLERGY to aspirin we'll continue Plavix and statin therapy with Lipitor * PTOT working with the patient * Await further recommendations Current Visit: Yes Status: Acute Code(s): I63.9 - CEREBRAL INFARCTION, UNSPECIFIED SNOMED Code(s): 097822083 (2) Weakness Current Visit: Yes Status: Acute Code(s): R53.1 - WEAKNESS SNOMED Code(s) : 27832107 (3) Accelerated hypertension Narrative/Plan: * We'll allow permissive hypertension continue to monitor blood pressure closely * Continue Tenormin, and Norvasc Current Visit: Yes Status: Acute Code(s): I10 - ESSENTIAL (PRIMARY) HYPERTENSION SNOMED Code(s): 12003295 (4) Dysarthria Narrative/Plan: * A video swallow performed earlier showing only minimal impairment * Continue with ongoing speech therapy recommendations with regular diet and honey thick fluids Current Visit: Yes Status: Acute Code(s): R47.1 - DYSARTHRIA AND ANARTHRIA SNOMED Code(s): 9351958 Plan: Disposition * Discussed plan of care with the patient and her daughter. I will follow-up EEG results * Likely discharge tomorrow may qualify for rehab
--- NOTE | 2018-04-10 17:29 | P.PN ---
Subjective Progress Note Date: 04/10/18 Patient is a pleasant 88-year-old female who is being followed by the neurology service for CVA. Patient was found by her daughter on the floor of her apartment. Patient does live alone. Patient was too weak to stand up and she was unsure how long she had been on the floor. Patient was brought to [facility] for further evaluation. Patient was on Plavix 75 mg in the home setting. Patient also takes Zocor 20 mg daily. Computed tomography scan of the brain was done on admission which showed no acute process but did show small vessel ischemic disease. Carotid Doppler showed no hemodynamically significant stenosis. EKG showed sinus rhythm. MRI showed a subacute ischemia involving the alexandra. At the time of my evaluation, patient is resting comfortably in bed and appears to be in no acute distress. Objective - Vital Signs Vital signs: Vital Signs Temp 98.5 F 04/10/18 16:00 Pulse 64 04/10/18 16:00 Resp 14 04/10/18 16:00 BP 146/68 04/10/18 16:00 Pulse Ox 95 04/10/18 16:00 Intake & Output 04/09/18 04/10/18 04/10/18 18:59 06:59 18:59 Intake Total 840 Output Total 1 Balance 840 -1 Weight 47.8 kg Intake: Oral 840 Output: Urine/Stool Mix 1 Other: Voiding Method Toilet Toilet Toilet # Voids 1 1 1 - Exam PHYSICAL EXAM: GENERAL APPEARANCE: Patient is a well-developed, female who appears to be in no acute distress. HEENT: Normocephalic, atraumatic, facial asymmetry is seen. Neck is supple with no masses felt. CARDIOVASCULAR: Regular rate and rhythm. ABDOMEN: Nontender, nondistended. EXTREMITIES: Show no edema or clubbing. NEUROLOGICAL EXAM: Patient is awake, alert, and oriented 3. Speech is dysarthric. Language is normal. Slight right facial droop on cranial nerve testing. Patient states this is chronic. Left upper and lower extremity strength 4/5 on the left upper and lower extremity and 5-/5 on the right upper and lower extremity. Sensory exam to light touch is normal in all 4 extremities. No tremors or seizure-like activity noted. - Labs CBC & Chem 7: 04/07/18 15:45 04/07/18 15:45 Assessment and Plan Plan: Impression: 1. CVA 2. Dysarthria 3. Generalized weakness 4. Hypertension Recommendation: Patient does have history of CVA and reportedly symptoms were left-sided weakness with last stroke. Patient family reports dysarthria is new for her. Dysarthria is ongoing and has not yet resolved. Patient right-sided weakness has improved. Computed tomography scan of the brain showed no acute process. Carotid Dopplers showed no hemodynamically significant stenosis. Patient has questionable difficulty with swallow. Thickened liquids are ordered. I recommend continuing Plavix 75 mg by mouth daily and statin therapy. MRI of the brain did show approximately 1.1 cm area of acute to subacute ischemia involving the alexandra. EEG result is pending. Fasting lipid panel and serum homocysteine level were within normal limits. Continue neurological checks. Continue medical management. Patient may need short inpatient rehab stay or home healthcare therapy. Patient is stable for discharge from a neurological standpoint. I will continue to follow with you on an as-needed basis. Feel free to call with any questions or concerns. I performed an examination of the patient and discussed the management with the PIZZA BAKER. I have reviewed the PIZZA BAKER notes and agree with the findings and plan of care.
--- NOTE | 2018-04-10 18:11 | EEG ---
ELECTROENCEPHALOGRAM REPORT DATE OF SERVICE: 04/10/2018 REASON FOR TESTING: Stroke. DESCRIPTION OF THE PROCEDURE: This EEG was performed using a 21-channel digital electroencephalograph, following international 10-20 system. DESCRIPTION OF THE RECORDING: From the beginning of the tracing, and with the patient's eyes closed, the background rhythm was mostly consisting of 8 Hz alpha frequency in the posterior occipital leads. No obvious asymmetry is seen. Occasional movement and muscle artifacts are seen. Photic stimulation was performed with a minimal driving response seen. No pathological waves were elicited. Hyperventilation was not performed. The patient does reach stage II of sleep during the tracing and occasional sleep spindles are seen. No epileptiform discharges were seen. Her EKG lead showed a regular rate and rhythm. INTERPRETATION: This asleep and awake EEG can be considered within normal limits. There was no asymmetry seen. No epileptiform discharges were noticed. The absence of epileptiform discharges does not rule out the diagnosis of epilepsy; therefore clinical correlation is recommended. MMZELDA / RANDALL: [id number] /
[2018-04-10] MEDS: ATORVASTATIN 40 MG TAB PO SCH (20:46)
[2018-04-10] MEDS: ATENOLOL 25 MG TAB PO SCH (20:46)
[2018-04-11] MEDS: SYMBICORT 80-4.5 MCG INHALER INHALATION SCH ×2 (07:07→19:57)
[2018-04-11] MEDS: ENOXAPARIN 40 MG/0.4 ML SYRINGE SQ SCH (08:43)
[2018-04-11] MEDS: CLOPIDOGREL 75 MG TAB PO SCH (08:43)
[2018-04-11] MEDS: amLODIPine 5 MG TAB PO SCH (08:43)
--- NOTE | 2018-04-11 12:54 | P.PN ---
Subjective Progress Note Date: 04/11/18 Principal diagnosis: Patient is a 88-year-old female with a past medical history hypertension, dyslipidemia, prior stroke with residual left-sided weakness, and congestive heart failure who presented to the ER with weakness. In the emergency department she underwent an extensive evaluation. Her initial vital signs showed an elevated blood pressure of 180/81. Initial laboratory analysis is essentially unremarkable. Urinalysis was unremarkable. She received 1 L of IV fluids but was still too weak to be discharged from the ER. She was placed in observation for further monitoring and care. She was found to have orthostatic vital sign despite hypetension and this was anticipated to be secondly to decreased compliance of her blood vessels due to advanced age. Her daughter then came and stated that she has been having episodes with choking at home for the last 1 week and coughing. She also has noted garbled speech. There is concern of possible new stroke. She was already on Plavix ALLERGIC to aspirin. She was moved to the selective care unit and neurology was consulted. She was stated on telemetry. Echo was with in normal. Carotid doppler unremarkable. She was having cough after eating. Had a delayed cough with water at bedside and passed with apple sauce. Speech was consulted. PT/OT evaulation was ordered at admission. She was took weak to be discharged home. Patient is sleeping and resting comfortably. Appears to be in better spirits today, still mentions dysarthria and facial droop and weakness Otherwise no complaints Objective - Vital Signs Vital signs: Vital Signs Temp 98.0 F 04/11/18 12:00 Pulse 74 04/11/18 12:00 Resp 17 04/11/18 12:00 BP 145/74 04/11/18 12:00 Pulse Ox 94 L 04/11/18 12:00 Intake & Output 04/10/18 04/11/18 04/11/18 18:59 06:59 18:59 Intake Total 250 120 Balance 250 120 Weight 47.5 kg Intake: IV 10 0.9 10 Oral 240 120 Other: Voiding Method Toilet Toilet Toilet # Voids 1 2 1 # Bowel Movements 1 - Exam Constitutional: No acute distress, conversant, pleasant Eyes: Anicteric sclerae, moist conjunctiva, no lid-lag, PERRLA ENMT: NC/AT,Oropharynx clear, no erythema, exudates Neck:Supple, FROM, no masses, or JVD, No carotid bruits; No thyromegaly Lungs: Clear to auscultation, Clear to percussion, Normal respiratory effort, no accessory muscle use Cardiovascular: Heart regular in rate and rhythm, No murmurs, gallops, or rubs no peripheral edema Abdominal: Soft Nontender, nom distended, no guarding, no rebound or rigidity, Normoactive bowel sounds No hepatomegaly, No splenomegaly, No palpable mass No abdominal wall hernia noted Skin: Normal temperature, tone, texture, turgor, No induration No subcutaneous nodules, No rash, lesions, No ulcers Extremities:No digital cyanosis No clubbing, Pedal pulses intact and symmetrical Radial pulses intact and symmetrical Normal gait and station, No calf tenderness Psychiatric: Alert and oriented to person, place and time, Appropriate affect Intact judgement Neuro: Dysarthric speech, right facial droop, 4/5 in the bilateral upper and lower extremity. - Labs CBC & Chem 7: 04/07/18 15:45 04/07/18 15:45 Assessment and Plan (1) CVA (cerebral vascular accident) Narrative/Plan: * Appreciate neurology recommendations EEG results pending. MRI confirming pontine CVA * Patient with history of being on antiplatelet therapy with Plavix, with ALLERGY to aspirin we'll continue Plavix and statin therapy with Lipitor * PTOT working with the patient * Await further recommendations Current Visit: Yes Status: Acute Code(s): I63.9 - CEREBRAL INFARCTION, UNSPECIFIED SNOMED Code(s): 530829878 (2) Weakness Current Visit: Yes Status: Acute Code(s): R53.1 - WEAKNESS SNOMED Code(s) : 87430657 (3) Accelerated hypertension Narrative/Plan: * We'll allow permissive hypertension continue to monitor blood pressure closely * Continue Tenormin, will titrate up Norvasc 10 mg by mouth daily Current Visit: Yes Status: Acute Code(s): I10 - ESSENTIAL (PRIMARY) HYPERTENSION SNOMED Code(s): 71651708 (4) Dysarthria Narrative/Plan: * A video swallow performed earlier showing only minimal impairment * Continue with ongoing speech therapy recommendations with regular diet and honey thick fluids Current Visit: Yes Status: Acute Code(s): R47.1 - DYSARTHRIA AND ANARTHRIA SNOMED Code(s): 7115789 Plan: Disposition * Discussed plan of care with the patient and her daughter. * Likely discharge in 1-2 days pending placement
--- NOTE | 2018-04-11 16:15 | P.CONS ---
History of Present Illness - Chief Complaint Gait disturbance - History of Present Illness I had the opportunity to see patient for inpatient rehab consultation with regard to gait disturbance. She was admitted to [facility] April 07 with mental status change and garbled speech. Seen by Dr. Handy. Head CT demonstrates only chronic small vessel change. Pelvic x-ray with severe osteopenia. Chest x -ray and carotid Doppler negative poor no active disease. Brain MRI with pavan infarct. PT reports minimal assistance for transfers and gait 80 feet with roller walker. OT reports supervision for upper dressing and minimal assistance for lower dressing, bathing, toileting and functional mobility. Previous functional history as elicited from patient: 88-year-old right-handed white female who is and lives at [facility]. Meals provided. She describes independent with own laundry, standing shower and gait with [address] Fischer is regular doctor. Denies tobacco or alcohol history. Family history of cancer in mother and [place] in father. Review of Systems Review of systems: ENT: Denies sneezes or discharge. Eyes: Denies discharge or photophobia. Cardiac: Denies chest pain or palpitation. Pulmonary: Denies cough or shortness of breath. Breast: Denies discharge or lumps. Gastrointestinal: Denies nausea, emesis, constipation, diarrhea. Genitourinary: Denies discharge or frequency. Musculoskeletal: Denies muscle or bone aches. Neurologic: Difficulty with speech as well as some right-sided weakness and numbness. Endocrine: Denies shakes or sweats. Oncology: Denies cancers. Dermatologic: Denies rash, itching, pruritus. ALLERGY/immunology: Denies sneezes, rashes. Past Medical History Past Medical History: Asthma, Heart Failure, CVA/TIA, Hyperlipidemia, Hypertension, Rheumatoid Arthritis (RA) Additional Past Medical History / Comment(s): weakness, hearing loss, chronic edema left lower extremity History of Any Multi-Drug Resistant Organisms: None Reported Past Surgical History: No Surgical Hx Reported Additional Past Surgical History / Comment(s): Bilateral cataract Past Anesthesia/Blood Transfusion Reactions: No Reported Reaction Past Psychological History: No Psychological Hx Reported Smoking Status: Former smoker Past Alcohol Use History: None Reported Past Drug Use History: None Reported - Past Family History Father Family Medical History: Myocardial Infarction ([place]) Mother Additional Family Medical History / Comment(s): Cancer, unknown type Medications and Allergies Home Medications Medication Instructions Recorded Confirmed Type Albuterol Sulfate [Proair Hfa] 2 puff INHALATION RT-Q4H PRN 04/07/18 04/07/18 History Atenolol 25 mg PO HS 04/07/18 04/07/18 History Clopidogrel [Plavix] 75 mg PO DAILY 04/07/18 04/07/18 History Fluticasone/Salmeterol [Advair 1 inhalation PO BID 04/07/18 04/07/18 History 250-50 Diskus] Simvastatin [Zocor] 20 mg PO HS 04/07/18 04/07/18 History amLODIPine [Norvasc] 7.5 mg PO DAILY 04/07/18 04/07/18 History Allergies Allergy/AdvReac Type Severity Reaction Status Date / Time ISAEL Inhibitors Allergy Unknown Verified 04/07/18 16:03 aspirin Allergy Unknown Verified 04/07/18 16:03 diclofenac [From Arthrotec] Allergy Unknown Verified 04/07/18 16:03 misoprostol [From Arthrotec] Allergy Unknown Verified 04/07/18 16:03 prednisone Allergy Unknown Verified 04/07/18 16:03 Physical Exam Vitals: Vital Signs Temp Pulse Resp BP BP Pulse Ox 04/11/18 15:54 97.9 F 81 16 151/88 94 L 04/11/18 12:00 98.0 F 74 17 145/74 94 L 04/11/18 08:31 97.5 F L 67 18 154/85 97 04/11/18 04:15 98.1 F 57 L 17 174/80 95 04/11/18 00:10 97.8 F 57 L 17 162/73 96 04/10/18 20:10 97.4 F L 57 L 17 144/80 96 Intake and Output 04/11/18 04/11/18 04/11/18 06:59 14:59 22:59 Intake Total 250 120 250 Balance 250 120 250 Intake: IV 10 0.9 10 Oral 240 120 250 Other: Voiding Method Toilet Toilet Toilet # Voids 2 1 2 # Bowel Movements 1 Weight 47.5 kg Skin: Atrophic, intact. General: Medium build and comfortable appearance. Head: Normocephalic, atraumatic. Eyes: Symmetric. Pupils equal round. Ears: Symmetric. Hearing within normal limits. Mouth: Clear. Neck: Supple. Carotid without bruit. Cardiac: Regular rate and rhythm. Lungs: Clear anteriorly and posteriorly. Abdomen: Soft active nontender. Extremities: Normal tone. Rheumatoid arthritic changes noted throughout. Neurological: Mental status: Alert, cooperative, pleasant. Cranial nerves: Symmetric facial tone and trapezius. Motor: Normal strength and isolation all 4 limbs. Sensation: Intact throughout. DTRs: Symmetric and equal throughout. Mobility: Sits with minimal assistance. Results CBC & Chem 7: 04/07/18 15:45 04/07/18 15:45 Chest x-ray: report reviewed (No active disease.) CT Scan - head: report reviewed (Chronic ischemic change.) MRI - abdomen: report reviewed (Pavan infarct.) Assessment and Plan (1) CVA (cerebral vascular accident) Current Visit: Yes Status: Acute Code(s): I63.9 - CEREBRAL INFARCTION, UNSPECIFIED SNOMED Code(s): 630251665 Plan: Impression: 1. Gait disturbance. 2. 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 3. Hypertension. 4. Disability. 5. CHF. 6. Rheumatoid arthritis. 7. Asthma. Comments and plan: PT and OT are ongoing. Safety concerns noted. I have added speech therapy at this time. At this time, discussed possible inpatient rehab with patient and she seems agreeable, if necessary. We'll review patient's progress Th a.m., after April 12 hol.
[2018-04-11] MEDS: ATORVASTATIN 40 MG TAB PO SCH (20:04)
[2018-04-11] MEDS: ATENOLOL 25 MG TAB PO SCH (20:04)
[2018-04-12] MEDS: amLODIPine 10 MG TAB PO SCH (09:28)
[2018-04-12] MEDS: CLOPIDOGREL 75 MG TAB PO SCH (09:28)
[2018-04-12] MEDS: SYMBICORT 80-4.5 MCG INHALER INHALATION SCH ×2 (09:29→20:00)
[2018-04-12] MEDS: ENOXAPARIN 40 MG/0.4 ML SYRINGE SQ SCH (09:29)
--- NOTE | 2018-04-12 09:43 | P.PN ---
Subjective Principal diagnosis: Patient is a 88-year-old female with a past medical history hypertension, dyslipidemia, prior stroke with residual left-sided weakness, and congestive heart failure who presented to the ER with weakness. In the emergency department she underwent an extensive evaluation. Her initial vital signs showed an elevated blood pressure of 180/81. Initial laboratory analysis is essentially unremarkable. Urinalysis was unremarkable. She received 1 L of IV fluids but was still too weak to be discharged from the ER. She was placed in observation for further monitoring and care. She was found to have orthostatic vital sign despite hypetension and this was anticipated to be secondly to decreased compliance of her blood vessels due to advanced age. Her daughter then came and stated that she has been having episodes with choking at home for the last 1 week and coughing. She also has noted garbled speech. There is concern of possible new stroke. She was already on Plavix ALLERGIC to aspirin. She was moved to the selective care unit and neurology was consulted. She was stated on telemetry. Echo was with in normal. Carotid doppler unremarkable. She was having cough after eating. Had a delayed cough with water at bedside and passed with apple sauce. Speech was consulted. PT/OT evaulation was ordered at admission. She was took weak to be discharged home. Patient is sleeping and resting comfortably. Patient reporting ongoing depressed mood for greater than 2 weeks and poor appetite still mentions dysarthria and facial droop and weakness Otherwise no complaints Objective - Vital Signs Vital signs: Vital Signs Temp 98.8 F 04/12/18 00:00 Pulse 64 04/12/18 04:00 Resp 17 04/12/18 04:00 BP 158/81 04/12/18 04:00 Pulse Ox 93 L 04/12/18 04:00 Intake & Output 04/11/18 04/12/18 04/12/18 18:59 06:59 18:59 Intake Total 370 Balance 370 Weight 47.6 kg Intake: Oral 370 Other: Voiding Method Toilet Toilet # Voids 4 1 # Bowel Movements 1 - Exam Constitutional: No acute distress, conversant, pleasant Eyes: Anicteric sclerae, moist conjunctiva, no lid-lag, PERRLA ENMT: NC/AT,Oropharynx clear, no erythema, exudates Neck:Supple, FROM, no masses, or JVD, No carotid bruits; No thyromegaly Lungs: Clear to auscultation, Clear to percussion, Normal respiratory effort, no accessory muscle use Cardiovascular: Heart regular in rate and rhythm, No murmurs, gallops, or rubs no peripheral edema Abdominal: Soft Nontender, nom distended, no guarding, no rebound or rigidity, Normoactive bowel sounds No hepatomegaly, No splenomegaly, No palpable mass No abdominal wall hernia noted Skin: Normal temperature, tone, texture, turgor, No induration No subcutaneous nodules, No rash, lesions, No ulcers Extremities:No digital cyanosis No clubbing, Pedal pulses intact and symmetrical Radial pulses intact and symmetrical Normal gait and station, No calf tenderness Psychiatric: Alert and oriented to person, place and time, depressed mood Neuro: Dysarthric speech, right facial droop, 4/5 in the bilateral upper and lower extremity. - Labs CBC & Chem 7: 04/07/18 15:45 04/07/18 15:45 Assessment and Plan (1) CVA (cerebral vascular accident) Narrative/Plan: * Appreciate neurology recommendations EEG results pending. MRI confirming pontine CVA * Patient with history of being on antiplatelet therapy with Plavix, with ALLERGY to aspirin we'll continue Plavix and statin therapy with Lipitor * PTOT working with the patient * Await further recommendations about rehab placement Current Visit: Yes Status: Acute Code(s): I63.9 - CEREBRAL INFARCTION, UNSPECIFIED SNOMED Code(s): 898951766 (2) Weakness Current Visit: Yes Status: Acute Code(s): R53.1 - WEAKNESS SNOMED Code(s) : 47176545 (3) Accelerated hypertension Narrative/Plan: * Blood pressure slightly elevated not quite at goal continue to monitor blood pressure closely * Continue Tenormin, will titrate up Norvasc 10 mg by mouth daily and HCTZ 12.5 mg by mouth daily Current Visit: Yes Status: Acute Code(s): I10 - ESSENTIAL (PRIMARY) HYPERTENSION SNOMED Code(s): 97344073 (4) Dysarthria Current Visit: Yes Status: Acute Code(s): R47.1 - DYSARTHRIA AND ANARTHRIA SNOMED Code(s): 1219097 (5) Depression Narrative/Plan: * Initiated patient on Remeron 15 mg PO qhs Current Visit: Yes Status: Acute Code(s): F32.9 - MAJOR DEPRESSIVE DISORDER , SINGLE EPISODE, UNSPECIFIED SNOMED Code(s): 81993959 Plan: Anticipate discharge in 1-2 days
[2018-04-12] MEDS: HYDROCHLOROTHIAZIDE 12.5 MG CAP PO SCH ×2 (13:27→13:37)
[2018-04-12] MEDS: ATORVASTATIN 40 MG TAB PO SCH (20:41)
[2018-04-12] MEDS: ATENOLOL 25 MG TAB PO SCH (20:41)
[2018-04-12] MEDS: MIRTAZAPINE 15 MG TAB PO SCH (20:41)
[2018-04-13] MEDS: SYMBICORT 80-4.5 MCG INHALER INHALATION SCH ×2 (07:31→19:55)
[2018-04-13] MEDS: ENOXAPARIN 40 MG/0.4 ML SYRINGE SQ SCH (07:56)
[2018-04-13] MEDS: CLOPIDOGREL 75 MG TAB PO SCH (07:57)
[2018-04-13] MEDS: amLODIPine 10 MG TAB PO SCH (07:57)
[2018-04-13] MEDS: HYDROCHLOROTHIAZIDE 12.5 MG CAP PO SCH (07:57)
[2018-04-13] MEDS ORDERED: HYDROCHLOROTHIAZIDE 12.5 MG CAP PO ONE (12:20)
[2018-04-13] MEDS ORDERED: hydrALAZINE HCL 10 MG TAB PO PRN (12:22)
[2018-04-13] MEDS: MIRTAZAPINE 15 MG TAB PO SCH (20:38)
[2018-04-13] MEDS: ATENOLOL 25 MG TAB PO SCH (20:38)
[2018-04-13] MEDS: ATORVASTATIN 40 MG TAB PO SCH (20:38)
[2018-04-14 07:31] VITALS: BP 154/79; PULSE 70; RESP 16; TEMP 98.1
[2018-04-14] MEDS: amLODIPine 10 MG TAB PO SCH (07:41)
[2018-04-14] MEDS: CLOPIDOGREL 75 MG TAB PO SCH (07:41)
[2018-04-14] MEDS: ENOXAPARIN 40 MG/0.4 ML SYRINGE SQ SCH (07:42)
[2018-04-14] MEDS ORDERED: HYDROCHLOROTHIAZIDE 25 MG TAB PO SCH (09:00)
[2018-04-14] MEDS: SYMBICORT 80-4.5 MCG INHALER INHALATION SCH (09:33)
--- NOTE | 2018-04-14 11:37 | P.PN ---
Subjective Progress Note Date: 04/14/18 Principal diagnosis: Patient is a 88-year-old female with a past medical history hypertension, dyslipidemia, prior stroke with residual left-sided weakness, and congestive heart failure who presented to the ER with weakness. In the emergency department she underwent an extensive evaluation. Her initial vital signs showed an elevated blood pressure of 180/81. Initial laboratory analysis is essentially unremarkable. Urinalysis was unremarkable. She received 1 L of IV fluids but was still too weak to be discharged from the ER. She was placed in observation for further monitoring and care. She was found to have orthostatic vital sign despite hypetension and this was anticipated to be secondly to decreased compliance of her blood vessels due to advanced age. Her daughter then came and stated that she has been having episodes with choking at home for the last 1 week and coughing. She also has noted garbled speech. There is concern of possible new stroke. She was already on Plavix ALLERGIC to aspirin. She was moved to the selective care unit and neurology was consulted. She was stated on telemetry. Echo was with in normal. Carotid doppler unremarkable. She was having cough after eating. Had a delayed cough with water at bedside and passed with apple sauce. Speech was consulted. PT/OT evaulation was ordered at admission. She was took weak to be discharged home. Patient is sleeping and resting comfortably. Patient has no complaints today Objective - Vital Signs Vital signs: Vital Signs Temp 98.1 F 04/14/18 07:00 Pulse 70 04/14/18 08:34 Resp 16 04/14/18 08:34 BP 154/79 04/14/18 07:00 Pulse Ox 94 L 04/14/18 07:00 Intake & Output 04/13/18 04/14/18 04/14/18 18:59 06:59 18:59 Intake Total 50 Output Total 225 Balance -175 Weight 49 kg 48.5 kg Intake: Oral 50 Output: Urine 225 Other: Voiding Method Toilet Toilet Toilet # Voids 2 1 - Exam Constitutional: No acute distress, conversant, pleasant Eyes: Anicteric sclerae, moist conjunctiva, no lid-lag, PERRLA ENMT: NC/AT,Oropharynx clear, no erythema, exudates Neck:Supple, FROM, no masses, or JVD, No carotid bruits; No thyromegaly Lungs: Clear to auscultation, Clear to percussion, Normal respiratory effort, no accessory muscle use Cardiovascular: Heart regular in rate and rhythm, No murmurs, gallops, or rubs no peripheral edema Abdominal: Soft Nontender, nom distended, no guarding, no rebound or rigidity, Normoactive bowel sounds No hepatomegaly, No splenomegaly, No palpable mass No abdominal wall hernia noted Skin: Normal temperature, tone, texture, turgor, No induration No subcutaneous nodules, No rash, lesions, No ulcers Extremities:No digital cyanosis No clubbing, Pedal pulses intact and symmetrical Radial pulses intact and symmetrical Normal gait and station, No calf tenderness Psychiatric: Alert and oriented to person, place and time, depressed mood Neuro: Dysarthric speech, right facial droop, 4/5 in the bilateral upper and lower extremity. - Labs CBC & Chem 7: 04/07/18 15:45 04/07/18 15:45 Assessment and Plan (1) CVA (cerebral vascular accident) Narrative/Plan: * Appreciate neurology recommendations EEG results pending. MRI confirming pontine CVA * Patient with history of being on antiplatelet therapy with Plavix, with ALLERGY to aspirin we'll continue Plavix and statin therapy with Lipitor * PTOT working with the patient * Await further recommendations about rehab placement Current Visit: Yes Status: Acute Code(s): I63.9 - CEREBRAL INFARCTION, UNSPECIFIED SNOMED Code(s): 213000940 (2) Weakness Current Visit: Yes Status: Acute Code(s): R53.1 - WEAKNESS SNOMED Code(s) : 28185729 (3) Accelerated hypertension Narrative/Plan: * Blood pressure slightly elevated not quite at goal continue to monitor blood pressure closely * Continue Tenormin, will titrate up Norvasc 10 mg by mouth daily and titrate up to HCTZ 25 mg by mouth daily and start hydralazine 10 mg by mouth every 6 when necessary Current Visit: Yes Status: Acute Code(s): I10 - ESSENTIAL (PRIMARY) HYPERTENSION SNOMED Code(s): 84481977 (4) Dysarthria Narrative/Plan: * A video swallow performed earlier showing only minimal impairment * Continue with ongoing speech therapy recommendations with regular diet and honey thick fluids Current Visit: Yes Status: Acute Code(s): R47.1 - DYSARTHRIA AND ANARTHRIA SNOMED Code(s): 3159813 (5) Depression Narrative/Plan: * Initiated patient on Remeron 15 mg PO qhs Current Visit: Yes Status: Acute Code(s): F32.9 - MAJOR DEPRESSIVE DISORDER , SINGLE EPISODE, UNSPECIFIED SNOMED Code(s): 71156456 Plan: Disposition patient ready for discharge and just waiting on approval from rehab or [facility]
--- NOTE | 2018-04-14 11:46 | P.DS ---
Providers Date of admission: 04/09/18 14:54 Attending physician: Dayana Albert DO Consults: 04/08/18 16:47 Consult Physician Routine Consulting Provider: Pedro Handy Consult Reason/Comments: CVA Do you want consulting provider notified?: Yes 04/11/18 11:46 Consult Physician Urgent Consulting Provider: Mike Lynn Consult Reason/Comments: [facility] Do you want consulting provider notified?: Yes Primary care physician: Nani Fischer MD - Discharge Diagnosis(es) (1) CVA (cerebral vascular accident) Current Visit: Yes Status: Acute (2) Weakness Current Visit: Yes Status: Acute (3) Accelerated hypertension Current Visit: Yes Status: Acute (4) Dysarthria Current Visit: Yes Status: Acute (5) Depression Current Visit: Yes Status: Acute Hospital Course: 88-year-old female with a past medical history hypertension, dyslipidemia, prior stroke with residual left-sided weakness, and congestive heart failure who presented to the ER with weakness. In the emergency department she underwent an extensive evaluation. Her initial vital signs showed an elevated blood pressure of 180/81. Initial laboratory analysis is essentially unremarkable. Urinalysis was unremarkable. She received 1 L of IV fluids but was still too weak to be discharged from the ER. She was placed in observation for further monitoring and care. She was found to have orthostatic vital sign despite hypetension and this was anticipated to be secondly to decreased compliance of her blood vessels due to advanced age. Her daughter then came and stated that she has been having episodes with choking at home for the last 1 week and coughing. She also has noted garbled speech. There is concern of possible new stroke. She was already on Plavix ALLERGIC to aspirin. She was moved to the selective care unit and neurology was consulted. She was stated on telemetry. Echo was with in normal. Carotid doppler unremarkable. She was having cough after eating. Had a delayed cough with water at bedside and passed with apple sauce. Speech was consulted. The patient had a video swallow done that showed only minimal impairment with speech recommendations with continuing heart healthy diet with honey thickened fluids. For the patient's ongoing hypertension her Norvasc was titrated up to 10 mg by mouth daily, and she was started on HCTZ 25 mg by mouth daily, with continuing her Tenormin 25 mg by mouth daily at bedtime with hydralazine 10 mg by mouth daily at bedtime when necessary elevated blood pressures. She was also started on Remeron 15 mg PO qhs at bedtime. She was subsequently discharged tomorrow would for ongoing rehab and physical therapy. This discharge process took approximately 35 minutes. Constitutional: No acute distress, conversant, pleasant Eyes: Anicteric sclerae, moist conjunctiva, no lid-lag, PERRLA ENMT: NC/AT,Oropharynx clear, no erythema, exudates Neck:Supple, FROM, no masses, or JVD, No carotid bruits; No thyromegaly Lungs: Clear to auscultation, Clear to percussion, Normal respiratory effort, no accessory muscle use Cardiovascular: Heart regular in rate and rhythm, No murmurs, gallops, or rubs no peripheral edema Abdominal: Soft Nontender, nom distended, no guarding, no rebound or rigidity, Normoactive bowel sounds No hepatomegaly, No splenomegaly, No palpable mass No abdominal wall hernia noted Skin: Normal temperature, tone, texture, turgor, No induration No subcutaneous nodules, No rash, lesions, No ulcers Extremities:No digital cyanosis No clubbing, Pedal pulses intact and symmetrical Radial pulses intact and symmetrical Normal gait and station, No calf tenderness Psychiatric: Alert and oriented to person, place and time, depressed mood Neuro: Dysarthric speech, right facial droop, 4/5 in the bilateral upper and lower extremity. Patient Condition at Discharge: Fair Plan - Discharge Summary New Discharge Prescriptions: No Action Simvastatin [Zocor] 20 mg PO HS Albuterol Sulfate [Proair Hfa] 2 puff INHALATION RT-Q4H PRN PRN Reason: Shortness Of Breath amLODIPine [Norvasc] 7.5 mg PO DAILY Clopidogrel [Plavix] 75 mg PO DAILY Atenolol 25 mg PO HS Fluticasone/Salmeterol [Advair 250-50 Diskus] 1 inhalation PO BID Discharge Medication List Albuterol Sulfate [Proair Hfa] 2 puff INHALATION RT-Q4H PRN 04/07/18 [History] Atenolol 25 mg PO HS 04/07/18 [History] Clopidogrel [Plavix] 75 mg PO DAILY 04/07/18 [History] Fluticasone/Salmeterol [Advair 250-50 Diskus] 1 inhalation PO BID 04/07/18 [ History] Simvastatin [Zocor] 20 mg PO HS 04/07/18 [History] amLODIPine [Norvasc] 7.5 mg PO DAILY 04/07/18 [History] Follow up Appointment(s)/Referral(s): Nani Fischer MD [Primary Care Provider] - 04/18/18 4:40 pm (TUESDAY ) Pedro Handy MD [STAFF PHYSICIAN] - 1 Week Patient Instructions/Handouts: Stroke (DC) Activity/Diet/Wound Care/Special Instructions: [facility] - [phone] Regular diet with honey thickened liquids with free water/ice chips between meals as tolerated. Inpatient rehab plan for April 13.
== END 2018-04-14 13:35 | DRG 65 ==
LOC: EC 15:26 → 3OBS 18:14 → 6SEL 04-08 15:45 → OBSVTOIN 04-09 14:54 → 5MS5E 04-12 12:07
PROVIDERS: ADMIT Internal Medicine; ATTEND Internal Medicine
DX: I63.9 Cerebral infarction, unspecified (principal); G81.91 Hemiplegia, unspecified affecting right dominant side; I69.354 Hemiplegia and hemiparesis following cerebral infarction affecting left non-dominant side; I11.0 Hypertensive heart disease with heart failure; I50.9 Heart failure, unspecified; E86.0 Dehydration; R13.10 Dysphagia, unspecified; R47.01 Aphasia; M06.9 Rheumatoid arthritis, unspecified; I16.0 Hypertensive urgency; R47.1 Dysarthria and anarthria; R40.2362 Coma scale, best motor response, obeys commands, at arrival to emergency department; R40.2142 Coma scale, eyes open, spontaneous, at arrival to emergency department; R40.2252 Coma scale, best verbal response, oriented, at arrival to emergency department; R29.702 NIHSS score 2; I69.392 Facial weakness following cerebral infarction; J45.909 Unspecified asthma, uncomplicated; E78.5 Hyperlipidemia, unspecified; R26.9 Unspecified abnormalities of gait and mobility; F32.9 Major depressive disorder, single episode, unspecified; M85.80 Other specified disorders of bone density and structure, unspecified site; H91.90 Unspecified hearing loss, unspecified ear; Z79.02 Long term (current) use of antithrombotics/antiplatelets; Z79.51 Long term (current) use of inhaled steroids; Z79.899 Other long term (current) drug therapy; Z87.891 Personal history of nicotine dependence; Z86.2 Personal history of diseases of the blood and blood-forming organs and certain disorders involving the immune mechanism; Z98.42 Cataract extraction status, left eye; Z98.41 Cataract extraction status, right eye; Z88.6 Allergy status to analgesic agent; Z88.8 Allergy status to other drugs, medicaments and biological substances; Z82.49 Family history of ischemic heart disease and other diseases of the circulatory system; Z80.9 Family history of malignant neoplasm, unspecified; W19.XXXA Unspecified fall, initial encounter; Y92.009 Unspecified place in unspecified non-institutional (private) residence as the place of occurrence of the external cause
CPT/HCPCS: 36415; 70450; 70551; 71046; 72170; 74230; 80053; 80061; 81001; 82140; 82306; 82550; 82553; 82607; 83090; 83605; 83735; 84100; 84443; 84484; 85025; 85610; 85730; 87086; 93005; 93306; 93880; 94640; 94760; 95819; 96361; 96374; 99285